=== PATIENT | male | born 1945 | race Caucasian/White ===

== ENCOUNTER 2016-03-12 13:46 | Outpatient (RCR) ==
[2014-12-02 14:38] VITALS: BMI 38.0
--- NOTE | 2016-03-15 08:39 | RS.OPPTEV2 ---
Date of Note: 03/12/16 Visit #: 1 Date of Evaluation: 03/12/16 Payer Source: MEDICARE Treatment Diagnosis: Low back pain History of Condition/Mechanism of Injury:: Patient reports increased low back and LE pain since approximately November 2015. Reports no known injury. Reports a history of problems with the low back. He had surgery to the low back in 2010 which involved hardware at L2-3 . Prior Level of Function.....Patient was independent with: ADL's, Self Care, Caregiving, Ambulation/Mobility, Community Integration/Access Functional Limitations: Sleep, Self Care, ADL's, Reaching, Pushing, Pulling, Lifting, Carrying, Sitting, Standing, Bending, Ambulation, Community Access/ Integration Current Subjective/complaints:: Patient reports low back pain and burning pain into the hips. States right side is worse than the left. States his pain is worse at night. Reports waking up many times due to pain and has to frequently change positions. Riding in the car is also difficult. States he also has times that his legs feel like "rubber". States this varies from day to day, and he can usually tell when he gets up in the morning how his legs are going to feel the rest of the day. *Precautions: PACEMAKER Medical History Medical History: Hypertension, Arthritis Surgical History Comments:: Lumbar surgery 2010, PACEMAKER, Cervical spine surgery Smoking Status: Former smoker Hx Home Medications: Omeprazole,Valsartan, Aricept, Metoprolol, Xanax, Lexapro Patient's Goals: His goal is to get relief of back and leg pain, and put off or avoid back surgery. Pain Assessment - Pain Description Pain Location: back and hips Current Pain Intensity: 4/10 Worst Pain Intensity: 7/10 Functional Outcome Measure Oswestry LBP: 64 - G Codes & Severity Modifier G Codes & Modifier: Mobility current CL. Mobility goal CJ Source of G Code score: Oswestry LBP scale Observation - Observation Posture: Forward Head, Rounded Shoulders, Decreased Lumbar Lordosis, Posterior Pelvic Tilt Gait - Gait Pattern General Gait Pattern Observation: No Deviations/Normal - ROM Comments: Lumbar AROM is approximately 50-75% of normal range. LE AROM is WFL' s. Right hip is tighter into IR and ER rotation and the right SLR is also less. - Strength Trunk Lateral Flexion: 4 Good Trunk Rotation: 4 Good Comments: Bilateral LE strength is 4+ to 5/5 throughout. - Special Tests SHAISTA Test: Negative Left, Positive Right SLR Test: Negative Left, Negative Right Seated Dural Stretch Test: Negative Left, Negative Right SI Joint Compression: Negative SI Joint Distraction: Negative Palpation Comments:: Patient reports tenderness at right superior gluteal musculature. Patient reports no significant tenderness with palpation throughout the lumbar spine and paraspinals, or either SI joint. Minimal muscle guarding noted along lumbar paraspinals. Sensation - Sensation Comments: Reports hyposensitivity along bilateral upper lateral thighs, worse on the right than the left. Additional Comments: Additional Comments: Right SLR to 30-35 degrees. Left SLR to 45 degrees. - Treatment Modality: Electrical Stim Unattended Parameters/Method Applied: 4 large pads, uncrossed to lumbar paraspinals X 15 mins @ 120 peak volts. Patient Position: Supine - Heat/Cryotherapy Treatment: Hot Pack (with Estim) Interventions - Exercise/Activities/Manual Therapy Exercises/Activities: Patient instructed in stretching SKTC and lower trunk rotation. Manual Therapy: NA HOME EXERCISE PROGRAM: stretching SKTC and lower trunk rotation. - Charges Total Direct Minutes: 55 mins Total Treatment Time: 55 mins Procedures billed for this date of service:: EVAL, Estim, HP Assessment Assessment: Patient presents to therapy with a diagnosis of low back pain. He reports difficulty sleeping, difficulty riding in a car, and hyposensitivity and weakness in the legs with prolonged standing and walking. He exhibits less flexibilty in the hip compared to the left. He exhibits good potential to benefit from modalities and exercises to reduce his pain and address muscle imbalances in the hips. Patient Education: Education of diagnosis, Body/Joint mechanics, Home Exercise Program, Home Safety, Activity Modification, Education of Plan of Care Rehab Potential: Good Short Term Goals Goal #1: Patient independent and compliant with basic HEP. Goal to be met by: 03/29/16 Goal #2: Right SLR to 40 degrees. Goal to be met by: 03/29/16 Goal #3: Radiating symptoms localized to the low back. Goal to be met by: 03/29/16 Longterm Goals Goal #1: Pt knows HEP and to continue exercises to maintain level at discharge. Goal to be met by: 04/29/16 Goal #2: Score on Oswestry LBP scale improved to 39% or better. Goal to be met by: 04/29/16 Goal #3: Pt able to tolerate riding in car with minimal low back pain. Goal to be met by: 04/29/16 Goal #4: Patient able to sleep 6 hours w/o interruption from back pain. Goal to be met by: 04/29/16 Plan - Treatment to be Provided Procedures: Therapeutic Exercises, Therapeutic Activity, Patient Education Modalities: Electrical Stimulation, Cryotherapy, Hot Packs - Treatment Plan Frequency: 2 X week Duration: 6 weeks ORDER # VISITS AND/OR THROUGH DATE: 04/29/16 - Treatment Code (1) Low back pain Qualifiers: Chronicity: unspecified Back pain laterality: unspecified Sciatica presence: unspecified whether sciatica present Qualified Description: Low back pain, unspecified back pain laterality, unspecified chronicity, with sciatica presence unspecified Qualifier Code(s): (M54.5) Low back pain
== END 2016-03-13 ==
PROVIDERS: ATTEND Physician Assistant Surgical
DX: M54.5 Low back pain (principal)

== ENCOUNTER 2016-04-06 13:00 | Outpatient (RCR) ==
[2014-12-02 14:38] VITALS: BMI 38.0
--- NOTE | 2016-03-15 14:57 | RS.OPPTDN ---
Subjective Date of Note: 03/15/16 Date of Evaluation: 03/12/16 Payer Source: MEDICARE Treatment Diagnosis: Low back pain *Precautions: PACEMAKER Pain Assessment - Pain Description Pain Location: LBP and right lateral thigh. Pain Description: Radiating Pain Description: Increased LBP over the past couple days associated with increased demands Interventions - Exercise/Activities/Manual Therapy Exercises/Activities: Patient performed alternating KTC and LTR X 5-10 reps. He was instructed in posterior pelvic tilts and hamstring stretches bilaterally to be performed with the HEP he has already began. He demonstrated good understanding but further education will be needed. Total minutes of Exercise: 15 Manual Therapy: Myofasical stretching in the area of the right piriformis and medial to the trochanteric area as well as the right mid-lower lumbar paraspinals. Tender point releases also performed in these areas and deep tissue mobilization. Total minutes of Manual Therapy: 30 HOME EXERCISE PROGRAM: Alt KTC, LTR, posterior pelvic tilts and hamstring stretches. - Charges Total Direct Minutes: 45 Total Treatment Time: 45 Procedures billed for this date of service:: ther ex & manual therapy X 2 Assessment: Patient tolerated tx well and had relief of pain and tightness following today's intervention. Patient Education: Body/Joint mechanics, Home Safety, Activity Modification Patient demonstrates compliance with HEP?: Yes Plan PLAN OF CARE EXPIRES ON:: 04/29/16 ORDER # VISITS AND/OR THROUGH DATE: 04/29/2016 PLAN: Continue Plan of Care
--- NOTE | 2016-03-20 15:11 | RS.CXNS ---
Date of scheduled appointment: 03/20/16 Type: Cancel ( calls to cancel appointment, patient is sick.)
--- NOTE | 2016-03-22 16:53 | RS.OPPTDN ---
Subjective Date of Note: 03/22/16 Visit #: 3 Date of Evaluation: 03/12/16 Payer Source: MEDICARE Treatment Diagnosis: Low back pain Current Subjective/complaints:: Patient reports feeling better following treatment today than he has been in several days. States he is working on HEP and will increase hold time with stretching. *Precautions: PACEMAKER Pain Assessment - Pain Description Pain Location: LBP and right lateral thigh. Pain Description: Radiating Pain Description: Increased LBP over the past couple days associated with increased demands - Treatment Modality: Electrical Stim Unattended Parameters/Method Applied: [id number] HVGC to 180-190p.v. with 4 large pads to the lower lumbar paraspinals and right upper gluteal region with CP. Patient in supine. Patient Position: Supine - Heat/Cryotherapy Treatment: Cryotherapy Interventions - Exercise/Activities/Manual Therapy Exercises/Activities: [id number]. Patient assisted with HS, piriformis, SKTC, trunk rotation, and ITB stretching. Long stretching and progressive hold times. Total minutes of Exercise: 14mins Manual Therapy: NA HOME EXERCISE PROGRAM: Alt KTC, LTR, posterior pelvic tilts and hamstring stretches. Piriformis stretching. - Charges Total Direct Minutes: 14mins Total Treatment Time: 40mins Procedures billed for this date of service:: HP, Estim unattended, EX Assessment: Patient responded well to treatment today and reports significant reduction in pain. Patient Education: Body/Joint mechanics, Home Exercise Program, Activity Modification Patient demonstrates compliance with HEP?: Yes Short Term Goals Goal #1: Patient independent and compliant with basic HEP. Goal to be met by: 03/29/16 Progress towards Goal:: Progressing Goal #2: Right SLR to 40 degrees. Goal to be met by: 03/29/16 Progress towards Goal:: Progressing Goal #3: Radiating symptoms localized to the low back. Goal to be met by: 03/29/16 Geotechnicial Properties Technician Goals Goal #1: Pt knows HEP and to continue exercises to maintain level at discharge. Goal to be met by: 04/29/16 Goal #2: Score on Oswestry LBP scale improved to 39% or better. Goal to be met by: 04/29/16 Goal #3: Pt able to tolerate riding in car with minimal low back pain. Goal to be met by: 04/29/16 Goal #4: Patient able to sleep 6 hours w/o interruption from back pain. Goal to be met by: 04/29/16 Plan PLAN OF CARE EXPIRES ON:: 04/29/16 ORDER # VISITS AND/OR THROUGH DATE: 04/29/2016 PLAN: Continue Plan of Care (Continue with modalities and exercise to reduce pain and increase functional activity level.)
--- NOTE | 2016-03-27 16:23 | RS.OPPTDN ---
Subjective Date of Note: 03/27/16 Visit #: 4 Date of Evaluation: 03/12/16 Payer Source: MEDICARE Treatment Diagnosis: Low back pain Current Subjective/complaints:: Patient reports having a fall yesterday. States he missed a step and fell on concrete. Reports being very sore but does not feel he has any injuries that need to be seen by physician. Reports feeling better after treatment and exercise. *Precautions: PACEMAKER Pain Assessment - Pain Description Pain Location: LBP and right lateral thigh. Pain Description: Radiating Pain Description: Increased LBP over the past couple days associated with increased demands - Treatment Modality: Electrical Stim Unattended Parameters/Method Applied: [id number] HVGC to 210p.v. with 4 large pads, cross current, to bilateral lumbar paraspinals with HP. Patient Position: Supine - Heat/Cryotherapy Treatment: Hot Pack ([id number] with Estim ) Interventions - Exercise/Activities/Manual Therapy Exercises/Activities: [id number]. Patient assisted with HS, piriformis, SKTC, trunk rotation, and ITB stretching. Long stretching and progressive hold times again today. Discussed continued stretching at home. Total minutes of Exercise: 15mins Manual Therapy: NA HOME EXERCISE PROGRAM: Alt KTC, LTR, posterior pelvic tilts and hamstring stretches. Piriformis stretching. - Charges Total Direct Minutes: 15mins Total Treatment Time: 40mins Procedures billed for this date of service:: HP, Estim unattended, EX Assessment: Continued with long stretches again today due to patients report of increased soreness after a fall yesterday. Will attempt to progress trunk stability next session if tolerated. Patient Education: Body/Joint mechanics, Home Exercise Program, Activity Modification Patient demonstrates compliance with HEP?: Yes Short Term Goals Goal #1: Patient independent and compliant with basic HEP. Goal to be met by: 03/29/16 Progress towards Goal:: Progressing Goal #2: Right SLR to 40 degrees. Goal to be met by: 03/29/16 Progress towards Goal:: Progressing Goal #3: Radiating symptoms localized to the low back. Goal to be met by: 03/29/16 Consumer Services Advisor Goals Goal #1: Pt knows HEP and to continue exercises to maintain level at discharge. Goal to be met by: 04/29/16 Goal #2: Score on Oswestry LBP scale improved to 39% or better. Goal to be met by: 04/29/16 Goal #3: Pt able to tolerate riding in car with minimal low back pain. Goal to be met by: 04/29/16 Goal #4: Patient able to sleep 6 hours w/o interruption from back pain. Goal to be met by: 04/29/16 Plan PLAN OF CARE EXPIRES ON:: 04/29/16 ORDER # VISITS AND/OR THROUGH DATE: 04/29/2016 PLAN: Continue Plan of Care
--- NOTE | 2016-03-29 16:30 | RS.OPPTDN ---
Subjective Date of Note: 03/29/16 Visit #: 5 Date of Evaluation: 03/12/16 Payer Source: MEDICARE Treatment Diagnosis: Low back pain Current Subjective/complaints:: Patient reports his back is about the same, but the burning in the hips is going away. States left LE symptoms are just about gone. Right hip continues to burn. *Precautions: PACEMAKER Pain Assessment - Pain Description Pain Location: LBP and right lateral thigh. Pain Description: Radiating Pain Description: Increased LBP over the past couple days associated with increased demands - Treatment Modality: Electrical Stim Unattended Parameters/Method Applied: 4 pads running horizontally to lumb/sacral region and upper lumbar X 20 mins to HVGS up to 155 peak volts. Patient Position: Supine - Heat/Cryotherapy Treatment: Hot Pack Interventions - Exercise/Activities/Manual Therapy Exercises/Activities: x18 mins. Patient assisted with HS, piriformis, SKTC, trunk rotation, and ITB stretching. Manual Therapy: NA HOME EXERCISE PROGRAM: Alt KTC, LTR, posterior pelvic tilts and hamstring stretches. Piriformis stretching. - Charges Total Direct Minutes: 18 mins Total Treatment Time: 38 mins Procedures billed for this date of service:: hp, Estim, Ex Assessment: Patient performing his exercises at home, states he is not always consistent. States burning symptoms in LE's are getting better. Low back pain is unchanged. He feels the Estim and stretching helps quite a bit. Patient demonstrates compliance with HEP?: Yes Short Term Goals Goal #1: Patient independent and compliant with basic HEP. Goal to be met by: 03/29/16 Progress towards Goal:: Progressing Goal #2: Right SLR to 40 degrees. Goal to be met by: 03/29/16 Progress towards Goal:: Progressing Goal #3: Radiating symptoms localized to the low back. Goal to be met by: 03/29/16 Progress towards Goal:: Progressing Comments:: Left LE symptoms nearly gone per patient. Group Home Goals Goal #1: Pt knows HEP and to continue exercises to maintain level at discharge. Goal to be met by: 04/29/16 Goal #2: Score on Oswestry LBP scale improved to 39% or better. Goal to be met by: 04/29/16 Goal #3: Pt able to tolerate riding in car with minimal low back pain. Goal to be met by: 04/29/16 Goal #4: Patient able to sleep 6 hours w/o interruption from back pain. Goal to be met by: 04/29/16 Plan PLAN OF CARE EXPIRES ON:: 04/29/16 ORDER # VISITS AND/OR THROUGH DATE: 04/29/2016 PLAN: Continue Plan of Care
--- NOTE | 2016-04-03 14:11 | RS.OPPTDN ---
Subjective Date of Note: 04/03/16 Visit #: 6 Date of Evaluation: 03/12/16 Payer Source: MEDICARE Treatment Diagnosis: Low back pain Current Subjective/complaints:: Reports the pain is moderate today,radiates into the posterior thigh,but not below the knee today. *Precautions: PACEMAKER Pain Assessment - Pain Description Pain Location: LBP and right lateral thigh. Pain Description: Radiating Pain Description: Increased LBP over the past couple days associated with increased demands Current Pain Intensity: 4/10 - Treatment Modality: Electrical Stim Unattended Parameters/Method Applied: 20 mins. to lumbar area,channel 1 @ 175pv,channel 2 @ 155pv. - Heat/Cryotherapy Treatment: Hot Pack (concurrent with e-stim) Interventions - Exercise/Activities/Manual Therapy Exercises/Activities: x20 mins. Patient assisted with 90/90 hamstring stretches ,using contract-relax, piriformis, SKTC, trunk rotation, and isometric hip abd / add. Total minutes of Exercise: 20 Manual Therapy: NA Total minutes of Manual Therapy: 0 HOME EXERCISE PROGRAM: Alt KTC, LTR, posterior pelvic tilts and hamstring stretches. Piriformis stretching. - Charges Total Direct Minutes: 20 Total Treatment Time: 40 Procedures billed for this date of service:: hp,e-stim,ex 1 Assessment: Patient has moderate hamstring tightness present,greater on the R, as opposed to the L today.He does have improved hamstring extensibility bilaterally after contract-relax today.His lower trunk rotation is WFL,with stretch dsicomfort only,no increase in sciatica. Patient Education: Education of diagnosis, Body/Joint mechanics, Home Exercise Program, Home Safety, Activity Modification, Education of Plan of Care Patient demonstrates compliance with HEP?: Yes Short Term Goals Goal #1: Patient independent and compliant with basic HEP. Goal to be met by: 03/29/16 Progress towards Goal:: Progressing Goal #2: Right SLR to 40 degrees. Goal to be met by: 03/29/16 Progress towards Goal:: Progressing Goal #3: Radiating symptoms localized to the low back. Goal to be met by: 03/29/16 Progress towards Goal:: Progressing Skilled Nursing Goals Goal #1: Pt knows HEP and to continue exercises to maintain level at discharge. Goal to be met by: 04/29/16 Progress towards goal: Progressing Goal #2: Score on Oswestry LBP scale improved to 39% or better. Goal to be met by: 04/29/16 Goal #3: Pt able to tolerate riding in car with minimal low back pain. Goal to be met by: 04/29/16 Goal #4: Patient able to sleep 6 hours w/o interruption from back pain. Goal to be met by: 04/29/16 Plan PLAN OF CARE EXPIRES ON:: 04/29/16 ORDER # VISITS AND/OR THROUGH DATE: 04/29/2016 PLAN: Continue Plan of Care
--- NOTE | 2016-04-06 14:12 | RS.OPPTDN ---
Subjective Date of Note: 03/20/16 Date of Evaluation: 03/12/16 Payer Source: MEDICARE Treatment Diagnosis: Low back pain Current Subjective/complaints:: Reports the back feels better today,but the R leg into the back of his thigh hurts today. *Precautions: PACEMAKER Pain Assessment - Pain Description Pain Location: LBP and right lateral thigh. Pain Description: Radiating, Dull, Aching Current Pain Intensity: 5 - Treatment Modality: Electrical Stim Unattended Parameters/Method Applied: 20 mins. high volt,channel 1 @ 185 pv,channel 2 @ 240 pv to lumbar. - Heat/Cryotherapy Treatment: Hot Pack (concurrent with e-stim) Interventions - Exercise/Activities/Manual Therapy Exercises/Activities: x20 mins. Patient assisted with 90/90 hamstring stretches ,using contract-relax, piriformis, SKTC, trunk rotation, and isometric hip abd / add. Total minutes of Exercise: 20 Manual Therapy: NA Total minutes of Manual Therapy: 0 HOME EXERCISE PROGRAM: Alt KTC, LTR, posterior pelvic tilts and hamstring stretches. Piriformis stretching. - Charges Total Direct Minutes: 20 Total Treatment Time: 40 Procedures billed for this date of service:: hp,e-stim,ex 1 Assessment: Patient has decreased tightness in the lumbar area,improved hamstring extensibility.He reports stretch discomfort,but no increase in LBP or radiculopathy. Short Term Goals Goal #1: Patient independent and compliant with basic HEP. Goal to be met by: 03/29/16 Progress towards Goal:: Progressing Goal #2: Right SLR to 40 degrees. Goal to be met by: 03/29/16 Progress towards Goal:: Progressing Goal #3: Radiating symptoms localized to the low back. Goal to be met by: 03/29/16 Progress towards Goal:: Progressing Correction Goals Goal #1: Pt knows HEP and to continue exercises to maintain level at discharge. Goal to be met by: 04/29/16 Progress towards goal: Progressing Goal #2: Score on Oswestry LBP scale improved to 39% or better. Goal to be met by: 04/29/16 Goal #3: Pt able to tolerate riding in car with minimal low back pain. Goal to be met by: 04/29/16 Goal #4: Patient able to sleep 6 hours w/o interruption from back pain. Goal to be met by: 04/29/16 Plan PLAN OF CARE EXPIRES ON:: 04/29/16 ORDER # VISITS AND/OR THROUGH DATE: 04/29/2016 PLAN: Continue Plan of Care
== END 2016-04-10 ==
PROVIDERS: ATTEND Physician Assistant Surgical
DX: M54.5 Low back pain (principal)

== ENCOUNTER 2016-04-07 13:21 | Emergency (ER) ==
[2016-04-07 13:31] VITALS: BP 140/84; TEMP 99.7; BMI 35.7
--- NOTE | 2016-04-07 13:42 | ED.PDOC ---
General ED Provider: Dr. YURI GTZ Chief Complaint: Urinary Problem Stated Complaint: Patient complains of one day history of painful urination. Time Seen by Physician: 13:42 Mode of Arrival: Walk-In Information Source: Patient Primary Care Provider: JANIE KING Nursing and Triage Documentation Reviewed and Agree: Yes Review of Systems - Review Of Systems Constitutional: Reports: No symptoms Eyes: Reports: No symptoms Ears, Nose, Mouth, Throat: Reports: No symptoms Respiratory: Reports: No symptoms Cardiac: Reports: No symptoms GI: Reports: No symptoms : Reports: No symptoms Musculoskeletal: Reports: No symptoms Skin: Reports: No symptoms Neurological: Reports: No symptoms Endocrine: Reports: No symptoms Hematologic/Lymphatic: Reports: No symptoms All Other Systems: Reviewed and Negative Past Medical History - Past Medical History Previously Healthy: Yes Endocrine: Reports: Hypothyroid, Hyperthyroid Cardiovascular: Reports: CAD, [place], CHF Respiratory: Reports: None Hematological: Reports: None Gastrointestinal: Reports: None Genitourinary: Reports: Kidney stones Neuro/Psych: Reports: None Musculoskeletal: Reports: None Cancer: Reports: Unknown (thyroid ) - Surgical History General Surgical History: Reports: None, CABG (2011), Pacemaker, Other ( Thyroid surgery ) - Family History Family History: Reports: None - Social History Smoking Status: Former smoker Hx Substance Use: No Alcohol Screening: None - Immunizations Tetanus Shot up to Date: Yes Physical Exam - Physical Exam Appearance: Ill-appearing Ill-appearing: Mild Pain Distress: Mild Eyes: DOROTHEA, EOMI, Conjunctiva clear Respiratory: Airway patent, Breath sounds clear, Breath sounds equal, Respirations nonlabored Cardiovascular: RRR, Pulses normal, No rub, No murmur GI/: Tender (suprapubit carea ) Musculoskeletal: Limited ROM Skin: Warm, Dry, Normal color Neurological: Sensation intact, Motor intact, Reflexes intact, Cranial nerves intact, Alert, Oriented Psychiatric: Anxious Critical Care Note - Critical Care Note Total Time (mins): 0 Course - Course Hematology/Chemistry: 04/07/16 13:50 04/07/16 13:50 Orders, Labs, Meds: Lab Review 04/07/16 04/07/16 13:50 14:06 WBC 15.28 H RBC 4.46 L Hgb 12.9 L Hct 38.9 L MCV 87.2 MCH 28.9 MCHC 33.2 RDW Coeff of Gonsalo 14.3 Plt Count 153 Immature Gran % (Auto) 0.5 Neut % (Auto) 82.4 Lymph % (Auto) 9.2 L [place] % (Auto) 7.1 Eos % (Auto) 0.5 Baso % (Auto) 0.3 Immature Gran # (Auto) 0.1 Neut # 12.6 H Lymph # 1.4 [place] # 1.1 Eos # 0.1 Baso # 0.1 Sodium 142 Potassium 3.7 Chloride 106 Carbon Dioxide 25 Anion Gap 14.7 BUN 19 H Creatinine 0.87 Estimated GFR (MDRD) 87.00 BUN/Creatinine Ratio 21.83 Glucose 102 Calcium 9.3 Total Bilirubin 1.15 AST 22 ALT 26 Alkaline Phosphatase 61 Total Protein 6.8 Albumin 3.6 Globulin 3.2 Albumin/Globulin Ratio 1.13 Urine Color Dark Urine Clarity Cloudy Urine pH 8.5 Ur Specific [place] 1.015 Urine Protein 2+ Urine Glucose (UA) Negative Urine Ketones 1+ Urine Blood 3+ Urine Nitrite Negative Urine Bilirubin 1+ Urine Urobilinogen 1.0 Ur Leukocyte Esterase 2+ Urine Microscopic RBC Tntc Urine Microscopic WBC Tntc Ur Squamous Epith Cells Not present Orders Category Date Time Status ED IV/MEDIPORT/POWERPORT .ONCE EMERGENCY 04/07/16 13:43 Active CBC W/ AUTO DIFF Stat LAB 04/07/16 13:50 Completed COMPREHENSIVE METABOLIC PANEL Stat LAB 04/07/16 13:50 Completed URINALYSIS C & S IF INDICATED Stat LAB 04/07/16 14:06 Completed URINE CULTURE Stat LAB 04/07/16 14:20 Received 0.9 % Sodium Chloride [Saline Flush] MEDS 04/07/16 13:43 Ordered 1 syr IVF PRN PRN Levofloxacin/D5w [Levaquin] 500 mg MEDS 04/07/16 14:21 Ordered Premix 100 ml D5w 1 bag IV ONCE Phenazopyridine HCl [Pyridium] MEDS 04/07/16 13:43 Discontinued 100 mg PO ONCE STA Sodium Chloride 0.9% [Sodium Chloride] 1,000 ml MEDS 04/07/16 13:[address] ABD/PEL WO RENAL STONE PROT Stat RADS 04/07/16 13:42 Taken Medications Generic Name Dose Route Start Last Admin Trade Name Freq PRN Reason Stop Dose Admin Sodium Chloride 1,000 mls @ 1,000 mls/hr 04/07/16 13:43 02/25/17 14:13 Sodium Chloride IV 04/07/16 14:42 1,000 mls/hr BOLUS STA Administration Levofloxacin/Dextrose 500 mg/ 100 mls @ 100 mls/hr 04/07/16 14:21 Dextrose IV 04/07/16 15:20 ONCE STA Sodium Chloride 1 syr 04/07/16 13:43 04/07/16 14:13 Saline Flush IVF 1 syr PRN PRN Administration To flush IV Discontinued Medications Generic Name Dose Route Start Last Admin Trade Name Freq PRN Reason Stop Dose Admin Phenazopyridine HCl 100 mg 04/07/16 13:43 04/07/16 14:06 Pyridium PO 04/07/16 13:44 100 mg ONCE STA Administration Vital Signs: Temp Pulse Resp BP Pulse Ox 04/07/16 13:21 99.7 F H 110 H 16 140/84 94 L Departure - Departure Time of Disposition: 14:22 Disposition: HOME SELF-CARE Discharge Problem: Cystitis Prostatitis Qualifiers: Prostatitis type: acute Qualifier Code: (N41.0) Acute prostatitis Instructions: Prostatitis (ED), Dysuria (ED), Urinary Tract Infection in Men ( ED) Condition: Fair Pt referred to PMD for follow-up: Yes Additional Instructions: push fluids Take medications as prescribed Follow up with PCP in 3 days Prescriptions: Hydrocodone/Acetaminophen [Moffat 5-325 Tablet] 1 tab PO Q6HR PRN #12 tablet PRN Reason: PAIN Levofloxacin [Levaquin] 500 mg PO DAILY #14 tablet Phenazopyridine HCl [Pyridium] 100 mg PO TID PRN #10 tablet PRN Reason: Urinary Burning. Allergies/Adverse Reactions: Allergies meperidine HCl [From Demerol] Adverse Reaction (Verified 12/02/14 14:48) Home Medications: Ambulatory Orders Alprazolam 0.25 mg PO TID PRN 12/02/14 Aspirin [Aspirin EC] 81 mg PO DAILYWM 12/02/14 Escitalopram Oxalate [Lexapro] 20 mg PO DAILY 12/02/14 Ferrous Sulfate [Iron] 325 mg PO DAILY 12/02/14 Metoprolol Tartrate [Lopressor] 50 mg PO DAILY 12/02/14 Nitroglycerin [Nitrostat] 0.4 mg SL DIRECTED PRN 12/02/14 Omeprazole [Prilosec] 20 mg PO QDAC 12/02/14 Valsartan [Diovan] 80 mg PO DAILY 12/02/14 Atorvastatin Calcium [Lipitor] 80 mg PO DAILY 04/07/16 Calcium Carbonate/Vitamin D3 [Calcium 600 + Vit D 400 Tablet] 1 each PO DAILY Donepezil HCl [Aricept] 5 mg PO DAILY 04/07/16 Furosemide [Lasix Tab] 40 mg PO DAILY 04/07/16 Hydrocodone/Acetaminophen [Moffat 5-325 Tablet] 1 tab PO Q6HR PRN #12 tablet Levofloxacin [Levaquin] 500 mg PO DAILY #14 tablet 04/07/16 [place]-3 Fatty Acids [Fish Oil Concentrate] 1,000 mg PO DAILY 04/07/16 Phenazopyridine HCl [Pyridium] 100 mg PO TID PRN #10 tablet 04/07/16 Potassium Chloride 20 meq PO DAILY 04/07/16 Ticagrelor [Brilinta] 90 mg PO BID 04/07/16 Disposition Discussed With: Family
[2016-04-07] MEDS ORDERED: SODIUM CHLORIDE 1,000 ML IV STA (13:43)
[2016-04-07] MEDS ORDERED: PYRIDIUM PO STA (13:43)
[2016-04-07 13:54] LABS: BASOPHILS # (AUTO) 0.1 K/uL (0-0.2); BASOPHILS % (AUTO) 0.3 % (0.0-3.0); EOSINOPHILS # (AUTO) 0.1 K/ul (0.0-0.7); EOSINOPHILS % (AUTO) 0.5 % (0.0-7.0); HEMATOCRIT 38.9 % (42.0-52.0); HEMOGLOBIN 12.9 g/dl (14.0-18.0); IMMATURE GRANULOCYTE % (AUTO) 0.5 % (0.0-5.0); LYMPHOCYTES # (AUTO) 1.4 K/uL (0.60-3.4); LYMPHOCYTES % (AUTO) 9.2 (10.0-50.0); MEAN CORPUSCULAR HEMOGLOBIN 28.9 pg (27.0-31.0); MEAN CORPUSCULAR HGB CONC 33.2 (31.8-35.4); MEAN CORPUSCULAR VOLUME 87.2 fl (80.0-94.0); MONOCYTES # (AUTO) 1.1 K/uL (0.4-2.0); MONOCYTES % (AUTO) 7.1 (0-10); NEUTROPHILS # (AUTO) 12.6 K/ul (2.0-6.9); NEUTROPHILS % (AUTO) 82.4; PLATELET COUNT 153 10^3/uL (140-440); RED BLOOD COUNT 4.46 10^6/ul (4.70-6.10); WHITE BLOOD COUNT 15.28 K/ul (4.2-10.2)
[2016-04-07 14:13] LABS: ALBUMIN 3.6 g/dL (3.4-5.0); ALBUMIN/GLOBULIN RATIO 1.13; ANION GAP 14.7; BILIRUBIN,TOTAL 1.15 mg/dL (0.00-1.20); BUN/CREATININE RATIO 21.83; CALCIUM 9.3 mg/dL (8.2-10.2); CREATININE 0.87 mg/dL (0.60-1.10); POTASSIUM 3.7 mmol/L (3.5-5.1); TOTAL PROTEIN 6.8 g/dL (5.8-8.1)
[2016-04-07 14:15] LABS: BILIRUBIN,URINE 1+ (NEGATIVE); KETONES,URINE 1+ (NEGATIVE); LEUKOCYTE ESTERASE ,URINE 2+ (NEGATIVE); NITRITE,URINE Negative (NEGATIVE); PH,URINE 8.5 (5-9); PROTEIN,URINE 2+ (NEGATIVE); URINE, BLOOD 3+ (NEGATIVE)
[2016-04-07 14:18] LABS: ADD URINE MICROSCOPIC YES
[2016-04-07] MEDS ORDERED: LEVAQUIN 500 MG in PREMIX 100 ML D5W 1 BAG IV STA (14:21)
--- NOTE | 2016-04-07 14:27 | CT ---
EXAM: CT of the abdomen and pelvis without contrast. HISTORY: Suprapubic pain COMPARISON: None. TECHNIQUE: Contiguous axial images at 3 mm intervals were obtained from lung bases through the pelv is without contrast. Coronal and sagittal reformats were performed. FINDINGS: CHEST: The lung bases show no lobar consolidation or effusion. Pacer wires are identified. The hea rt size is within normal limits.There is no hiatal hernia. ABDOMEN: No acute abnormality. There is a posterior lateral abdominal wall hernia on the left conta ining fat. LIVER: There is no solid mass lesion or intrahepatic ductal dilatation. BILIARY: The gallbladder is normally distended. No gallstones are noted. No pericholecystic fluid or inflammation. The common bile duct is normal. SPLEEN: The spleen is unremarkable. There is old granulomatous disease. PANCREAS: The pancreas shows no mass lesion or peripancreatic inflammation. ADRENAL GLANDS: There may be a small adenoma in the right adrenal. RENAL: The kidneys show no hydronephrosis. There are some tiny punctate calyceal stones seen on th e right. There are no obstructing ureteral stones. No solid mass lesions are identified. There are no large cysts. RETROPERITONEUM: No aortic aneurysm is identified. Atherosclerotic calcifications are seen. There is no retroperitoneal or mesenteric adenopathy. BOWEL: There is no obstruction or ileus. There is no bowel wall thickening, edema or mesenteric fat stranding. There is no free fluid or free air. The appendix is identified and is normal. PELVIS: There is no free fluid. BLADDER: There is extensive inflammation and thickening of the bladder wall. GENITOURINARY STRUCTURES: The prostate is enlarged and edematous with fat stranding along the pelvi c side wall. The prostate measures 6.3 cm across. OSSEOUS STRUCTURES: No acute osseous abnormalities. There has been prior lumbar surgery. IMPRESSION: 1. Extensive inflammation and edema involving the prostate extending to the bladder. This probably represents an acute prostatitis and cystitis. 2. Other miscellaneous findings as detailed above. Report called to
[2016-04-07] MEDS ORDERED: LEVAQUIN 100 ML IV ONE (14:34)
== END 2016-04-07 16:03 | disposition home or self-care (01) ==
LOC: ED 13:21
DX: N30.90 Cystitis, unspecified without hematuria (principal); N41.0 Acute prostatitis; Z79.899 Other long term (current) drug therapy
CPT/HCPCS: 36415; 74176; 80053; 81001; 85025; 87086; 87186; 96365; 96368; 99283

== ENCOUNTER 2016-04-23 15:00 | Outpatient (RCR) ==
--- NOTE | 2016-04-11 14:58 | RS.OPPTDN ---
Subjective Date of Note: 04/11/16 Visit #: 8 Date of Evaluation: 03/12/16 Payer Source: MEDICARE Treatment Diagnosis: Low back pain Current Subjective/complaints:: Patient reports intense pain with attempted urination this past Saturday,04-07-16,came to ER for treatment.He requests e-stim ,only today,does not feel he can tolerate the exercises or heat. *Precautions: PACEMAKER Pain Assessment - Pain Description Pain Location: LBP and right lateral thigh. Current Pain Intensity: 5 Other Comments regarding Pain:: extreme over the weekend ,but feels this was more due to urological issues - Treatment Modality: Electrical Stim Unattended Parameters/Method Applied: 20 mins. high volt,channel 1 @ 190 pv,channel 2 @ 140 pv to lumbar. Patient Position: Supine Interventions - Exercise/Activities/Manual Therapy Exercises/Activities: x20 mins. Patient assisted with 90/90 hamstring stretches ,using contract-relax, piriformis, SKTC, trunk rotation, and isometric hip abd / add. Manual Therapy: NA HOME EXERCISE PROGRAM: Alt KTC, LTR, posterior pelvic tilts and hamstring stretches. Piriformis stretching. - Charges Total Direct Minutes: 0 Total Treatment Time: 20 Procedures billed for this date of service:: e-stim Assessment: Abbreviated treatment today per patient's request due to having the urological issues and pain over the weekend,feels the exercises would cause pressure in the groin region.We will resume usual treatment shane improves. Patient Education: Education of Plan of Care Patient demonstrates compliance with HEP?: Yes Short Term Goals Goal #1: Patient independent and compliant with basic HEP. Goal to be met by: 03/29/16 Progress towards Goal:: Progressing Goal #2: Right SLR to 40 degrees. Goal to be met by: 03/29/16 (N/A) Goal #3: Radiating symptoms localized to the low back. Goal to be met by: 03/29/16 Progress towards Goal:: No Change Yard Foreman Goals Goal #1: Pt knows HEP and to continue exercises to maintain level at discharge. Goal to be met by: 04/29/16 Progress towards goal: Progressing Goal #2: Score on Oswestry LBP scale improved to 39% or better. Goal to be met by: 04/29/16 Goal #3: Pt able to tolerate riding in car with minimal low back pain. Goal to be met by: 04/29/16 Goal #4: Patient able to sleep 6 hours w/o interruption from back pain. Goal to be met by: 04/29/16 Plan PLAN OF CARE EXPIRES ON:: 04/29/16 ORDER # VISITS AND/OR THROUGH DATE: 04/29/2016 PLAN: Continue Plan of Care
--- NOTE | 2016-04-13 15:19 | RS.OPPTDN ---
Subjective Date of Note: 04/13/16 Visit #: 9 Date of Evaluation: 03/12/16 Payer Source: MEDICARE Treatment Diagnosis: Low back pain Current Subjective/complaints:: Patient feels the therapy is helping. *Precautions: PACEMAKER Pain Assessment - Pain Description Pain Location: LBP and right lateral thigh. Pain Description: Dull, Aching Current Pain Intensity: not rated - Treatment Modality: Electrical Stim Unattended Parameters/Method Applied: 20 mins. high volt to lumbar,channel 1 @ 180 pv, channel 2 @ 225 pv. in supine. Patient Position: Supine Interventions - Exercise/Activities/Manual Therapy Exercises/Activities: x20 mins. Patient assisted with 90/90 hamstring stretches ,using contract-relax, piriformis, SKTC, trunk rotation, and isometric hip abd / add. Total minutes of Exercise: 20 Manual Therapy: NA Total minutes of Manual Therapy: 0 HOME EXERCISE PROGRAM: Alt KTC, LTR, posterior pelvic tilts and hamstring stretches. Piriformis stretching. - Charges Total Direct Minutes: 20 Total Treatment Time: 40 Procedures billed for this date of service:: e-stim,ex Assessment: Patient reports today the pain is mostly in the back,as opposed to the legs.He tolerates riding in a vehicle better,slight improvement in sleeping with less pain.He has good knowledge of HEP. Patient Education: Education of diagnosis, Body/Joint mechanics, Home Exercise Program, Home Safety, Activity Modification, Education of Plan of Care Patient demonstrates compliance with HEP?: Yes Short Term Goals Goal #1: Patient independent and compliant with basic HEP. Goal to be met by: 03/29/16 Progress towards Goal:: Partially Met Goal #2: Right SLR to 40 degrees. Goal to be met by: 03/29/16 (occasionally causes increasd back pain) Progress towards Goal:: Partially Met Goal #3: Radiating symptoms localized to the low back. Goal to be met by: 03/29/16 Progress towards Goal:: Progressing Senior Living Goals Goal #1: Pt knows HEP and to continue exercises to maintain level at discharge. Goal to be met by: 04/29/16 Progress towards goal: Met Goal #2: Score on Oswestry LBP scale improved to 39% or better. Goal to be met by: 04/29/16 Progress towards goal: Progressing Goal #3: Pt able to tolerate riding in car with minimal low back pain. Goal to be met by: 04/29/16 Progress towards goal: Progressing Goal #4: Patient able to sleep 6 hours w/o interruption from back pain. Goal to be met by: 04/29/16 Progress towards goal: Progressing Plan PLAN OF CARE EXPIRES ON:: 04/29/16 ORDER # VISITS AND/OR THROUGH DATE: 04/29/2016 PLAN: Continue Plan of Care
--- NOTE | 2016-04-23 16:24 | RS.CXNS ---
Date of scheduled appointment: 04/23/16 Type: No Show
--- NOTE | 2016-05-07 11:02 | RS.OPPTDC ---
Date of Discharge: 04/25/16 Date of Evaluation: 03/12/16 Number of Visits: 9 Treatment Diagnosis: Low back pain Current Complaints/Gains: Patient feels theray has helped. He performs HEP consistently. He is confident he can continue exercises on his own. Reports he is able to tolerate riding or driving with minimal pain for short distances. He is sleeping for approximately 4 hours at a time. Functional Outcome Measure Oswestry LBP: 48 - G Codes & Severity Modifier G Codes & Modifier: Mobility goal CJ. Mobility d/C CK Source of G Code score: Oswestry LBP score Interventions - Exercise/Activities/Manual Therapy Exercises/Activities: NA Manual Therapy: NA HOME EXERCISE PROGRAM: Alt KTC, LTR, posterior pelvic tilts and hamstring stretches. Piriformis stretching. - Objective Findings Observations,measurements,etc.: Independent HEP demo. Right SLR to 45 degrees. - Charges Total Direct Minutes: NA Total Treatment Time: NA Procedures billed for this date of service:: NA Assessment Assessment: Patient reports improved flexibility and less pain with driving/ riding in car short distances. He feels he can continue exercises on his own. Short Term Goals Goal #1: Patient independent and compliant with basic HEP. Goal to be met by: 03/29/16 Progress towards Goal:: Partially Met Goal #2: Right SLR to 40 degrees. Goal to be met by: 03/29/16 (occasionally causes increasd back pain) Progress towards Goal:: Partially Met Goal #3: Radiating symptoms localized to the low back. Goal to be met by: 03/29/16 Progress towards Goal:: Progressing Histology Assistant Goals Goal #1: Pt knows HEP and to continue exercises to maintain level at discharge. Goal to be met by: 04/29/16 Progress towards goal: Met Goal #2: Score on Oswestry LBP scale improved to 39% or better. Goal to be met by: 04/29/16 Progress towards goal: Not Met Goal #3: Pt able to tolerate riding in car with minimal low back pain. Goal to be met by: 04/29/16 Progress towards goal: Partially Met Goal #4: Patient able to sleep 6 hours w/o interruption from back pain. Goal to be met by: 04/29/16 Progress towards goal: Not Met Plan Reason for Discharge:: No Further Skilled Therapy Indicated
== END 2016-05-11 ==
PROVIDERS: ATTEND Physician Assistant Surgical
DX: M54.5 Low back pain (principal)

== ENCOUNTER 2016-08-01 12:15 | Outpatient (CLI) ==
--- NOTE | 2016-08-01 13:05 | DI ---
EXAM: Three views of the right elbow HISTORY: Right elbow injury with pain. COMPARISON: None FINDINGS: There is no lytic or blastic lesion of the right elbow. There is soft tissue swelling ove r the olecranon with a small osteophyte present. Radial head articulates normally with the capitell um. There is no displaced fracture or dislocation identified. There are no displaced fat pads. IMPRESSION: Soft tissue swelling over the olecranon may represent traumatic swelling versus bursiti s. There is no displaced fracture identified.
--- NOTE | 2016-08-01 13:07 | DI ---
EXAM: Two views of the right hip HISTORY: Right hip pain. COMPARISON: CT abdomen pelvis 04/07/2016 FINDINGS: There is no displaced fracture or dislocation of the right hip. Joint spaces maintained. The adjacent osseous structures of the pelvis are normal. The soft tissues are unremarkable. IMPRESSION: No acute abnormality or displaced fracture of the of the right hip.
== END 2016-08-01 12:16 | disposition home or self-care (01) ==
LOC: RAD 12:15
PROVIDERS: ATTEND Family Medicine
DX: M25.521 Pain in right elbow (principal); M25.551 Pain in right hip

== ENCOUNTER 2018-01-21 13:25 | Outpatient (RCR) | END 2018-02-10 23:59 | PROVIDERS: ATTEND Orthopaedic Surgery | DX: M72.2 Plantar fascial fibromatosis (principal); M79.671 Pain in right foot; M62.89 Other specified disorders of muscle ==

== ENCOUNTER 2018-02-21 11:45 | Outpatient (CLI) | payer OTHER ==
--- NOTE | 2018-02-21 14:41 | CT ---
EXAM: CT of the abdomen pelvis without contrast History: Left flank pain. Comparison: CT abdomen pelvis 04/07/2016 Technique: Multiplanar CT images through the abdomen pelvis were obtained without the administration of IV contrast Findings: Coronary calcifications. Lung bases are clear. No acute osseous abnormalities. Postsurg ical changes of the lumbar spine. No change in the fat containing left posterior lateral abdominal w all hernia measuring 5.4 cm. No gallstones identified by CT. Calcified granulomas within the spleen . No focal liver lesions. No peripancreatic inflammation. Adrenal glands are within normal limits. No change in the small tamar ign left renal cyst. A few punctate 1 mm right renal calculi. No left renal calculi. No hydronephr osis and no perinephric stranding. No ureteral calculi. The appendix is normal. No bowel obstructi on. No free air and no ascites. Prostate is enlarged. No perirectal inflammation. Colonic diverti culosis. No bladder wall thickening. Impression: 1. 1 mm nonobstructing right nephrolithiasis. 2. Colonic diverticulosis. 3. Enlarged prostate. 4. No change in the fat containing left posterior lateral abdominal wall hernia
== END 2018-02-21 11:46 | disposition home or self-care (01) ==
LOC: RAD 11:45
PROVIDERS: ATTEND Family Medicine
DX: R10.9 Unspecified abdominal pain (principal); M72.2 Plantar fascial fibromatosis
CPT/HCPCS: 74176

== ENCOUNTER 2018-03-12 08:00 | Outpatient (RCR) ==
--- NOTE | 2018-02-19 08:35 | RS.OPPTEV2 ---
Date of Note: 02/17/18 Visit #: 1 Number of visits approved by Insurance: n/a Date of Evaluation: 02/17/18 Payer Source: MEDICARE Date of Onset/Injury/Change in Status: 12/27/17 Surgery Performed?: No Treatment Diagnosis: R plantar fasciatis History of Condition/Mechanism of Injury:: pt reports began having foot pain in 12/29. No definite injury noted, pt had visit for HEP, however no improvement. Prior Level of Function.....Patient was independent with: ADL's, Self Care, Caregiving, Ambulation/Mobility, Community Integration/Access Functional Limitations: Standing, Ambulation Current Subjective/complaints:: pt states that he has not consistently been performing HEP due to being busy building house etc. States pain is getting worse. Treatment Side (optional): Right *Precautions: PACEMAKER Medical History Medical History: Hypertension, Arthritis, Cancer Surgical History: Cervical Spine, Lumbar Spine Surgical History Comments:: PACEMAKER, Smoking Status: Never smoker Hx Home Medications: pt did not bring list of medications Patient's Goals: decrease pain. Pain Assessment - Pain Description Pain Location: R heel Pain Description: Burning, Sharp Current Pain Intensity: 4-5/10 Worst Pain Intensity: 9 Functional Outcome Measure LE Functional Scale: 24 - G Codes & Severity Modifier G Codes & Modifier: n/a Source of G Code score: n/a Observation - Observation Posture: Forward Head, Rounded Shoulders, Decreased Lumbar Lordosis Handedness: Right Comments: pt also has long history of LBP with radiating pain into BLE L worse than R. Gait - Gait Pattern General Gait Pattern Observation: Antalgic Gait Gait Comments: pt amb with antalgic gait due to pain in R foot with decreased heel strike/toe off on R foot. General Range of Motion: BUE and LE WFL's Muscle Strength: BUE 5/5. BLE hip flex 4+/5, knee flex/ext 5/5, L ankle DF/PF 5 /5 Ankle ROM: Left WFL's Ankle Muscle Strength: Left WFL's - Right Ankle ROM Right DF with Knee extension: 6 Right Plantarflexion: 29 Right Eversion: 20 Right Inversion: 28 Right Ankle/Foot ROM Limitations: Soft Tissue Tightness, Pain - Right Ankle Strength Right Dorsiflexion: 3+ Fair+ Right Plantarflexion: 4- Good- Right Eversion: 3+ Fair+ Right Inversion: 3+ Fair+ Palpation Palpation Findings: Tenderness Comments:: tenderness to palpation R medial heel Sensation - Sensation Right Upper Extremity: Intact/Normal Left Upper Extremity: Intact/Normal Right Lower Extremity: Intact/Normal Left Lower Extremity: Intact/Normal Balance - Sitting Balance Static Sitting Balance: Normal Dynamic Sitting Balance: Normal - Standing Balance Static Standing Balance: Good Dynamic Standing Balance: Fair - Comments Balance Assessment Comments: Tinetti test: which is consistent with moderate risk of falls. (pt states that he has always been clumsy and falls pretty much every day. States his mother said he had polio as a child.) - Treatment Modality: Ultrasound Parameters/Method Applied: 1.5w/cm2 Treatment Area: R plantar surface heel Patient Position: Supine Comments: sup with RLE elevated Interventions - Exercise/Activities/Manual Therapy Exercises/Activities: pt performed standing heel cord stretches, Received passive heel cord stretching, resisted DF/PF Manual Therapy: NA HOME EXERCISE PROGRAM: pt still has written HEP from one time visit. Reinforced importance of atleast performing stretches and ice. - Charges Timed Code Treatment Minutes: 49 Total Treatment Time: 52 Procedures billed for this date of service:: eval med, ultrasound EVALUATION COMPLEXITY LEVEL EVALUATION COMPLEXITY LEVEL: HISTORY: Medium (HTN, OA, CA, pacemaker, pain), EXAM OF BODY SYSTEMS: Medium (pain, ROM, strength, balance, gait), CLINICAL PRESENTATION: Medium, CLINICAL DECISION MAKING: Medium Assessment Assessment: pt presents with pain in R foot which is limiting gait ability as well as pt ability to stand for any length of time. pt also presents with decreased balance due to alterered gait pattern. Patient Education: Home Exercise Program, Education of Plan of Care Rehab Potential: Good Short Term Goals Goal #1: pt independent with initial HEP Goal to be met by: 03/03/18 Goal #2: Improve R ankle ROM WFL with decreased pain Goal to be met by: 03/03/18 Goal #3: pt with improved RLE strength 4 to 4+/5 Goal to be met by: 03/03/18 Goal #4: Improve dyn stand balance as noted by tinetti Goal to be met by: 03/03/18 Senior Care Goals Goal #1: pt rate pain <4/10 with activity Goal to be met by: 03/17/18 Goal #2: pt report increased ability to perform daily activities with less pain Goal to be met by: 03/17/18 Goal #3: Improved dyn stand balance as noted by tinetti score of 23/28 Goal to be met by: 03/17/18 Goal #4: . Plan - Treatment to be Provided Procedures: Therapeutic Exercises, Gait Training, Manual Therapy, Massage, Patient Education Modalities: Ultrasound/Phonophoresis, Class IV Laser, Cryotherapy - Treatment Plan Frequency: 2-3x a week Duration: 4 weeks Dates of Plasma Table Operator Goals: 03/17/18 Expiration date of current Insurance Approval:: n/a - Treatment Code (1) Muscle tightness Code(s): M62.89 - OTHER SPECIFIED DISORDERS OF MUSCLE (2) Plantar fasciitis Code(s): M72.2 - PLANTAR FASCIAL FIBROMATOSIS (3) Right foot pain Code(s): M79.671 - PAIN IN RIGHT FOOT
--- NOTE | 2018-02-19 09:13 | RS.OPPTDN ---
Subjective Date of Note: 02/19/18 Visit #: 2 Number of visits approved by Insurance: NA Date of Evaluation: 02/17/18 Payer Source: MEDICARE Treatment Diagnosis: R plantar fasciatis Current Subjective/complaints:: Patient reports he is working on stretching as instructed. States he continues to walk with a cane, but feels he is able to put more weight on the right foot. *Precautions: PACEMAKER Pain Assessment - Pain Description Pain Location: right heel and plantar surface Current Pain Intensity: mod - Treatment Modality: Ultrasound Parameters/Method Applied: [id number] at 1.5w/cm2 to the right heel and along the plantar surface. Patient Position: Supine - Heat/Cryotherapy Treatment: Hot Pack ([id number] to the right foot platar surface prior to US and EX. Patient in supine. ), Cryotherapy (Ended with 5mins ice massage to the right foot plantar surface. ) Interventions - Exercise/Activities/Manual Therapy Exercises/Activities: pt performed standing heel cord stretches, Received passive heel cord stretching, resisted DF/PF. Instructed in self stretching with band or belt, and standing heel cord stretch at wall. Total minutes of Exercise: [id number] Manual Therapy: NA HOME EXERCISE PROGRAM: pt still has written HEP from one time visit. Self stretching of heel cords and plantar fascia. Ice several times per day. - Charges Timed Code Treatment Minutes: 35mins Total Treatment Time: 50mins Procedures billed for this date of service:: HP, US, EX Assessment: Patient attentive to instruction and appears motivated to work on HEP. Patient Education: Education of diagnosis, Body/Joint mechanics, Home Exercise Program, Activity Modification Comments: Patient education on mechanics and dx. Patient demonstrates compliance with HEP?: Yes Short Term Goals Goal #1: pt independent with initial HEP Goal to be met by: 03/03/18 Progress towards Goal:: Progressing Goal #2: Improve R ankle ROM WFL with decreased pain Goal to be met by: 03/03/18 Goal #3: pt with improved RLE strength 4 to 4+/5 Goal to be met by: 03/03/18 Goal #4: Improve dyn stand balance as noted by mary alice Goal to be met by: 03/03/18 Half-Way Goals Goal #1: pt rate pain <4/10 with activity Goal to be met by: 03/17/18 Goal #2: pt report increased ability to perform daily activities with less pain Goal to be met by: 03/17/18 Goal #3: Improved dyn stand balance as noted by tinetti score of Goal to be met by: 03/17/18 Goal #4: . Plan Dates of Route Contractor Goals: 03/17/18 Expiration date of current Insurance Approval:: 03/17/18 PLAN: Continue modalities, manual therapy, exercise to reduce pain and increase functional ambulation.
--- NOTE | 2018-02-21 11:27 | RS.OPPTDN ---
Subjective Date of Note: 02/21/18 Visit #: 3 Number of visits approved by Insurance: NA Date of Evaluation: 02/17/18 Payer Source: MEDICARE Treatment Diagnosis: R plantar fasciatis Current Subjective/complaints:: Patient report his right foot/heel pain has improved and he is walking a little better. Patient states he continues to need his cane. *Precautions: PACEMAKER Pain Assessment - Pain Description Pain Location: right heel and plantar surface Pain Description: Aching Current Pain Intensity: mod - Treatment Modality: Ultrasound Parameters/Method Applied: [id number] at 1.5w/cm2 to the right foot plantar surface prior to MT. Patient Position: Supine - Heat/Cryotherapy Treatment: Hot Pack ([id number] to the right foot plantar surface prior to US. patient in supine. ), Cryotherapy (Ended treatment session with 5mins ice massage to the right foot plantar surface. ) Interventions - Exercise/Activities/Manual Therapy Exercises/Activities: NA Manual Therapy: [id number] Passive stretching of the right foot plantar surface and heelcords. Deep tissue and myofasical release to the plantar fascia. Total minutes of Manual Therapy: 15mins HOME EXERCISE PROGRAM: pt still has written HEP from one time visit. Self stretching of heel cords and plantar fascia. Ice several times per day. - Charges Timed Code Treatment Minutes: 30mins Total Treatment Time: 45mins Procedures billed for this date of service:: HP, US, MT Assessment: Patient reporting good response to treatment with reports of decrease pain and improved gait. Patient Education: Home Exercise Program Patient demonstrates compliance with HEP?: Yes Short Term Goals Goal #1: pt independent with initial HEP Goal to be met by: 03/03/18 Progress towards Goal:: Progressing Goal #2: Improve R ankle ROM WFL with decreased pain Goal to be met by: 03/03/18 Progress towards Goal:: Progressing Goal #3: pt with improved RLE strength 4 to 4+/5 Goal to be met by: 03/03/18 Goal #4: Improve dyn stand balance as noted by mary alice Goal to be met by: 03/03/18 Prison Goals Goal #1: pt rate pain <4/10 with activity Goal to be met by: 03/17/18 Progress towards goal: Progressing Goal #2: pt report increased ability to perform daily activities with less pain Goal to be met by: 03/17/18 Goal #3: Improved dyn stand balance as noted by tinetti score of Goal to be met by: 03/17/18 Goal #4: . Plan Dates of Cake Mixer Goals: 03/17/18 Expiration date of current Insurance Approval:: 03/17/18 PLAN: Continue modalities, manual therapy, and exercise to reduce pain and increase functional ambulation.
--- NOTE | 2018-02-24 11:12 | RS.OPPTDN ---
Subjective Date of Note: 02/24/18 Visit #: 4 Number of visits approved by Insurance: NA Date of Evaluation: 02/17/18 Payer Source: MEDICARE Treatment Diagnosis: R plantar fasciatis Current Subjective/complaints:: Patient reports continued improvement in right heel/foot pain. States he continues to use cane when out of his home. *Precautions: PACEMAKER Pain Assessment - Pain Description Pain Location: right heel, plantar surface Current Pain Intensity: mild - Treatment Modality: Ultrasound Parameters/Method Applied: [id number] at 1.5w/cm2 to the right heel and along plantar surface prior to MT. Patient Position: Supine - Heat/Cryotherapy Treatment: Hot Pack ([id number] to the right heel and plantar surface of the foot. Patient in supine. ), Cryotherapy (Ended with 5mins ice massage to right foot plantar surface. ) Interventions - Exercise/Activities/Manual Therapy Exercises/Activities: Discussed self stretching in sitting and standing. Manual Therapy: [id number] Passive stretching of the right foot plantar surface and heelcords. Deep tissue and myofasical release to the plantar fascia. Passive stretch of the great toe flexor. Total minutes of Manual Therapy: 18mins HOME EXERCISE PROGRAM: pt still has written HEP from one time visit. Self stretching of heel cords and plantar fascia. Ice several times per day. - Charges Timed Code Treatment Minutes: 33mins Total Treatment Time: 48mins Procedures billed for this date of service:: HP, US, MT Assessment: Patient walking better and going without cane at home. Patient Education: Home Exercise Program Patient demonstrates compliance with HEP?: Yes Short Term Goals Goal #1: pt independent with initial HEP Goal to be met by: 03/03/18 Progress towards Goal:: Progressing Goal #2: Improve R ankle ROM WFL with decreased pain Goal to be met by: 03/03/18 Progress towards Goal:: Progressing Goal #3: pt with improved RLE strength 4 to 4+/5 Goal to be met by: 03/03/18 Goal #4: Improve dyn stand balance as noted by mary alice Goal to be met by: 03/03/18 Director Of Research And Development Goals Goal #1: pt rate pain <4/10 with activity Goal to be met by: 03/17/18 Progress towards goal: Partially Met Goal #2: pt report increased ability to perform daily activities with less pain Goal to be met by: 03/17/18 Goal #3: Improved dyn stand balance as noted by tinetti score of Goal to be met by: 03/17/18 Goal #4: . Plan Dates of Director Of Research And Development Goals: 03/17/18 Expiration date of current Insurance Approval:: 03/17/18 PLAN: Continue modalities and progress exercise to redcue pain and increase functional ambulation.
--- NOTE | 2018-02-26 11:21 | RS.OPPTDN ---
Subjective Date of Note: 02/26/18 Visit #: 5 Number of visits approved by Insurance: NA Date of Evaluation: 02/17/18 Payer Source: MEDICARE Treatment Diagnosis: R plantar fasciatis Current Subjective/complaints:: Patient reports the ultrasound sems to really help relieve the pain.He is doing the exercises /stretches at home. *Precautions: PACEMAKER Pain Assessment - Pain Description Pain Location: R heel/plantar surface - Treatment Modality: Ultrasound Parameters/Method Applied: 10 mins. continuous mode @ 1.5 w/cm2 to R plantar surface Patient Position: Supine - Heat/Cryotherapy Treatment: Hot Pack (20 mins. prior to US ) Interventions - Exercise/Activities/Manual Therapy Exercises/Activities: Reviewed the stretches and use of ice bottle to the plantar surface at home. Total minutes of Exercise: 0 Manual Therapy: Passive stretching of the right foot plantar surface and heelcords. Deep tissue and myofasical release to the plantar fascia. Total minutes of Manual Therapy: 20 HOME EXERCISE PROGRAM: pt still has written HEP from one time visit. Self stretching of heel cords and plantar fascia. Ice several times per day. - Charges Timed Code Treatment Minutes: 30 Total Treatment Time: 50 Procedures billed for this date of service:: hp,US,manual therapy Assessment: Patient has mild tenderness with moderate pressure to the anterior aspect of the heel ,along with the mid-arch area.He tolerates the stretches well ,no pain at rest in the arch.He also enters clinic today with new running shoes ,to assist with reducng foot pain.He is motivated to improve and attentive to the recommendations of the therapy staff. Patient Education: Education of diagnosis, Body/Joint mechanics, Home Exercise Program, Home Safety, Activity Modification, Education of Plan of Care Patient demonstrates compliance with HEP?: Yes Short Term Goals Goal #1: pt independent with initial HEP Goal to be met by: 03/03/18 Progress towards Goal:: Progressing Goal #2: Improve R ankle ROM WFL with decreased pain Goal to be met by: 03/03/18 Progress towards Goal:: Progressing Goal #3: pt with improved RLE strength 4 to 4+/5 Goal to be met by: 03/03/18 Goal #4: Improve dyn stand balance as noted by mary alice Goal to be met by: 03/03/18 Library Page Goals Goal #1: pt rate pain <4/10 with activity Goal to be met by: 03/17/18 Progress towards goal: Partially Met (pain intensity varies ,dependent upon how long he is on his feet) Goal #2: pt report increased ability to perform daily activities with less pain Goal to be met by: 03/17/18 Progress towards goal: Progressing Goal #3: Improved dyn stand balance as noted by tinetti score of 23/28 Goal to be met by: 03/17/18 Goal #4: . Plan Dates of Fdc Goals: 03/17/18 Expiration date of current Insurance Approval:: NA PLAN: Cont. skilled PT to reduce /eliminate R foot pain.
--- NOTE | 2018-02-28 10:45 | RS.OPPTDN ---
Subjective Date of Note: 02/28/18 Visit #: 6 Number of visits approved by Insurance: NA Date of Evaluation: 02/17/18 Payer Source: MEDICARE Treatment Diagnosis: R plantar fasciatis Current Subjective/complaints:: Patient reports continued improvement in right foot pain. States he has some increased soreness today as he did more standing yesterday. Reports a flair-up of right hip and S-I region pain. States physician has told him this is due to change in gait and walking with cane. *Precautions: PACEMAKER Pain Assessment - Pain Description Pain Location: Right heel and plantar surface, left hip Current Pain Intensity: mild - Treatment Modality: Ultrasound Parameters/Method Applied: [id number] at 1.5w/cm2 to the right foot plantar surface prior to MT. Patient Position: Supine - Heat/Cryotherapy Treatment: Hot Pack ([id number] to the right foot prior to US and MT. Patient in supine. ), Cryotherapy (x5mins ice massage to the right foot plantar surface to end session. Patient supine. ) Interventions - Exercise/Activities/Manual Therapy Exercises/Activities: Reviewed standing gastroc and soleus stretching. Assisted with piriformis stretch to left hip. Began green theraband for resistive right ankle df. Assisted hamstring and heelcord stretching on right. Total minutes of Exercise: 12mins Manual Therapy: Passive stretching of the right foot plantar surface and heelcords. Deep tissue and myofasical release to the plantar fascia. Total minutes of Manual Therapy: [id number] HOME EXERCISE PROGRAM: pt still has written HEP from one time visit. Self stretching of heel cords and plantar fascia. Ice several times per day. - Charges Timed Code Treatment Minutes: 44mins Total Treatment Time: 59mins Procedures billed for this date of service:: HP, US, MT, EX Assessment: Patient responding well to treatment with reports of pain reduction and improved gait. He continues to wear new supportive athletic shoes. Patient motivated to progress exercise. Patient Education: Body/Joint mechanics, Home Exercise Program, Home Safety, Activity Modification Comments: Reviewed joint mechanics and home management techniques. Patient demonstrates compliance with HEP?: Yes Short Term Goals Goal #1: pt independent with initial HEP Goal to be met by: 03/03/18 Progress towards Goal:: Progressing Goal #2: Improve R ankle ROM WFL with decreased pain Goal to be met by: 03/03/18 Progress towards Goal:: Progressing Goal #3: pt with improved RLE strength 4 to 4+/5 Goal to be met by: 03/03/18 Progress towards Goal:: Progressing Goal #4: Improve dyn stand balance as noted by tinetti Goal to be met by: 03/03/18 Shelter Goals Goal #1: pt rate pain <4/10 with activity Goal to be met by: 03/17/18 Progress towards goal: Partially Met (pain intensity varies ,dependent upon how long he is on his feet) Goal #2: pt report increased ability to perform daily activities with less pain Goal to be met by: 03/17/18 Progress towards goal: Progressing Goal #3: Improved dyn stand balance as noted by tinetti score of Goal to be met by: 03/17/18 Goal #4: . Plan Dates of Steno Pool Supervisor Goals: 03/17/18 Expiration date of current Insurance Approval:: 03/17/18 PLAN: Continue modalities, manual therapy, and exercise to reduce pain and increase patients balance and functional activity level.
--- NOTE | 2018-03-03 09:22 | RS.OPPTDN ---
Subjective Date of Note: 03/03/18 Visit #: 7 Number of visits approved by Insurance: n/a Date of Evaluation: 02/17/18 Payer Source: MEDICARE Treatment Diagnosis: R plantar fasciatis Current Subjective/complaints:: pt reports that his foot has improved since beginning PT. pt amb without cane this date. States his back has been giving him problems, however is going to have injections tomorrow. *Precautions: PACEMAKER Pain Assessment - Pain Description Pain Location: R heel plantar surface. Pain Description: Burning Current Pain Intensity: 1-2 - Treatment Modality: Ultrasound Parameters/Method Applied: 1.5w/cm2 x 9 mins to plantar surface of R foot concentrating on R lat heel, prior to ex. Patient Position: Supine - Heat/Cryotherapy Treatment: Hot Pack (x 15 mins prior to ultrasound and ex.), Cryotherapy (ice massage x 5 mins after treatment) Interventions - Exercise/Activities/Manual Therapy Exercises/Activities: pt received heel cord stretching RLE. pt also performed 2 sets of 10 reps of DF, PF, inversion, eversion with green band. Reviewed HEP with patient. Manual Therapy: pt received myofascial release to plantar surface of foot with deep tissue massage and stretching HOME EXERCISE PROGRAM: pt still has written HEP from one time visit. Self stretching of heel cords and plantar fascia. Ice several times per day. - Charges Timed Code Treatment Minutes: 46 Total Treatment Time: 61 Procedures billed for this date of service:: HP, US, Ex Assessment: pt progressing with decreased pain R foot as well as decreased antalgic gait pattern. pt has progressed to amb without cane. pt also improved with decreased tightness in R heel cord. Patient Education: Home Exercise Program, Education of Plan of Care Patient demonstrates compliance with HEP?: Yes Short Term Goals Goal #1: pt independent with initial HEP Goal to be met by: 03/03/18 Progress towards Goal:: Met Goal #2: Improve R ankle ROM WFL with decreased pain Goal to be met by: 03/03/18 Progress towards Goal:: Progressing Goal #3: pt with improved RLE strength 4 to 4+/5 Goal to be met by: 03/03/18 Progress towards Goal:: Progressing Goal #4: Improve dyn stand balance as noted by mary alice Goal to be met by: 03/03/18 Progress towards Goal:: Progressing Comments:: will recheck tinetti on next visit. Correction Goals Goal #1: pt rate pain <4/10 with activity Goal to be met by: 03/17/18 Progress towards goal: Partially Met (pain intensity varies ,dependent upon how long he is on his feet) Goal #2: pt report increased ability to perform daily activities with less pain Goal to be met by: 03/17/18 Progress towards goal: Progressing Goal #3: Improved dyn stand balance as noted by tinetti score of 23/28 Goal to be met by: 03/17/18 Progress towards goal: Progressing Goal #4: . Plan Dates of Correction Goals: 03/17/18 Expiration date of current Insurance Approval:: n/a PLAN: continue to progress with ex, manual therapy and modalities to decrease pain and improve mobility.
--- NOTE | 2018-03-05 10:40 | RS.OPPTDN ---
Subjective Date of Note: 03/05/18 Visit #: 8 Number of visits approved by Insurance: NA Date of Evaluation: 02/17/18 Payer Source: MEDICARE Treatment Diagnosis: R plantar fasciatis Current Subjective/complaints:: Patient reports an increase in right foot pain due to standing for services yesterday. States overall he has made good improvement and has discontinued use of cane. *Precautions: PACEMAKER Pain Assessment - Pain Description Pain Location: Right heel, plantar surface Pain Description: Tightness, Aching Current Pain Intensity: mild - Treatment Modality: Ultrasound Parameters/Method Applied: [id number] @ 1.5w/cm2 to the right foot plantar surface prior to MT. Patient Position: Supine - Heat/Cryotherapy Treatment: Hot Pack ([id number] to the right foot plantar surface prior to US. Patient in supine. ), Cryotherapy (Ended with 5mins ice massage to the right heel and along plantar fasica. Patient in supine. ) Interventions - Exercise/Activities/Manual Therapy Exercises/Activities: Increased to blue theraband for resisted right ankle df, 3s/10reps. Reviewed HEP and home care. Total minutes of Exercise: 4mins Manual Therapy: pt received myofascial release to plantar surface of foot with deep tissue massage and stretching Total minutes of Manual Therapy: 20mins HOME EXERCISE PROGRAM: pt still has written HEP from one time visit. Self stretching of heel cords and plantar fascia. Ice several times per day. - Charges Timed Code Treatment Minutes: 39mins Total Treatment Time: 54mins Procedures billed for this date of service:: HP, US, MT2 Assessment: Patient progressing with functional activity level and has been able to discontinue use of cane. Patient Education: Home Exercise Program, Activity Modification Patient demonstrates compliance with HEP?: Yes Short Term Goals Goal #1: pt independent with initial HEP Goal to be met by: 03/03/18 Progress towards Goal:: Met Goal #2: Improve R ankle ROM WFL with decreased pain Goal to be met by: 03/03/18 Progress towards Goal:: Progressing Goal #3: pt with improved RLE strength 4 to 4+/5 Goal to be met by: 03/03/18 Progress towards Goal:: Progressing Goal #4: Improve dyn stand balance as noted by mary alice Goal to be met by: 03/03/18 Progress towards Goal:: Progressing [facility] Goals Goal #1: pt rate pain <4/10 with activity Goal to be met by: 03/17/18 Progress towards goal: Partially Met (pain intensity varies ,dependent upon how long he is on his feet) Goal #2: pt report increased ability to perform daily activities with less pain Goal to be met by: 03/17/18 Progress towards goal: Met Goal #3: Improved dyn stand balance as noted by tinetti score of 23/28 Goal to be met by: 03/17/18 Progress towards goal: Progressing Goal #4: . Plan Dates of Chcf Goals: 03/17/18 Expiration date of current Insurance Approval:: 03/17/18 PLAN: Continue modalities, MT, and progressive EX to reduce pain and increase patients functional activity level.
--- NOTE | 2018-03-07 11:55 | RS.OPPTDN ---
Subjective Date of Note: 03/07/18 Visit #: 9 Number of visits approved by Insurance: NA Date of Evaluation: 02/17/18 Payer Source: MEDICARE Treatment Diagnosis: R plantar fasciatis Current Subjective/complaints:: Patient reports improvement in right foot pain today. States he has not been on his feet as much and is working on HEP. *Precautions: PACEMAKER Pain Assessment - Pain Description Pain Location: right heel and plantar surface Pain Description: Tightness Pain Description: soreness Current Pain Intensity: mild - Treatment Modality: Ultrasound Parameters/Method Applied: [id number] at 1.5w/cm2 to the right heel and along the plantar surface prior to MT. Patient Position: Supine - Heat/Cryotherapy Treatment: Hot Pack ([id number] to the right foot prior to US and MT. Patient in supine. ) Interventions - Exercise/Activities/Manual Therapy Exercises/Activities: Blue theraband for resisted right ankle df, 4s/10reps. Discussion of HEP. Total minutes of Exercise: 5mins Manual Therapy: pt received myofascial release to plantar surface of foot with deep tissue massage and stretching. Assisted stretching of hamstrings, gastroc, soleus, and plantar fascia. Total minutes of Manual Therapy: 24mins HOME EXERCISE PROGRAM: pt still has written HEP from one time visit. Self stretching of heel cords and plantar fascia. Ice several times per day. - Objective Findings Observations,measurements,etc.: Reduction in gait deviation and increase in hamstring and heel cord length. - Charges Timed Code Treatment Minutes: 39mins Total Treatment Time: 54mins Procedures billed for this date of service:: HP, US, MT2 Assessment: Patient demos improvement in flexibility and ambulation, and reports improvement in functional activity level. Patient Education: Home Exercise Program, Activity Modification Patient demonstrates compliance with HEP?: Yes Short Term Goals Goal #1: pt independent with initial HEP Goal to be met by: 03/03/18 Progress towards Goal:: Met Goal #2: Improve R ankle ROM WFL with decreased pain Goal to be met by: 03/03/18 Progress towards Goal:: Progressing Goal #3: pt with improved RLE strength 4 to 4+/5 Goal to be met by: 03/03/18 Progress towards Goal:: Progressing Goal #4: Improve dyn stand balance as noted by mary alice Goal to be met by: 03/03/18 Progress towards Goal:: Progressing Long-Term Goals Goal #1: pt rate pain <4/10 with activity Goal to be met by: 03/17/18 Progress towards goal: Partially Met (pain intensity varies ,dependent upon how long he is on his feet) Goal #2: pt report increased ability to perform daily activities with less pain Goal to be met by: 03/17/18 Progress towards goal: Met Goal #3: Improved dyn stand balance as noted by tinetti score of 23/28 Goal to be met by: 03/17/18 Progress towards goal: Progressing Goal #4: . Plan Dates of Long-Term Goals: 03/17/18 Expiration date of current Insurance Approval:: 03/17/18 PLAN: Continue modalities and progress exercise to reduce pain and increase functional mobility and activity level.
--- NOTE | 2018-03-12 14:02 | RS.OPPTDN ---
Subjective Date of Note: 03/12/18 Visit #: 10 Number of visits approved by Insurance: NA Date of Evaluation: 02/17/18 Payer Source: MEDICARE Treatment Diagnosis: R plantar fasciatis Current Subjective/complaints:: Patient reports he has no balance problems. States right foot pain continues to improve. States right heel pain continues to reduce his WB with walking and he has mild gait deviation. States he is working on HEP and feels another week of treatment should improve his ability to WB on right foot and improve his walking. *Precautions: PACEMAKER Pain Assessment - Pain Description Pain Location: right heel, plantar fascia Pain Description: Tightness, Dull, Aching Current Pain Intensity: 2/10 - Treatment Modality: Ultrasound Parameters/Method Applied: [id number] at 1.5w/cm2 to the right foot plantar surface. Patient Position: Supine - Heat/Cryotherapy Treatment: Hot Pack ([id number] to the right heel and plantar surface prior to US and MT. Patient supine. ) Interventions - Exercise/Activities/Manual Therapy Exercises/Activities: Blue theraband for resisted right ankle df, 4s/10reps. Blue theraband for ankle inversion and eversion, 3s/10reps each. Isometrics for inversion, eversion, and df. Total minutes of Exercise: 8mins Manual Therapy: pt received myofascial release to plantar surface of foot with deep tissue massage and stretching. Assisted stretching of hamstrings, gastroc, soleus, and plantar fascia. Total minutes of Manual Therapy: 20mins HOME EXERCISE PROGRAM: pt still has written HEP from one time visit. Self stretching of heel cords and plantar fascia. Ice several times per day. - Objective Findings Observations,measurements,etc.: Patient increased LE Functional scale score to 45/80 or 44% (24/80 or 70%) - Charges Timed Code Treatment Minutes: 38mins Total Treatment Time: 56mins Procedures billed for this date of service:: HP, US, MT, EX Assessment: Patient progressing well with ROM, strength, reduction of pain, and improvement of gait and functional activity level. Patient Education: Education of diagnosis, Home Exercise Program Patient demonstrates compliance with HEP?: Yes Short Term Goals Goal #1: pt independent with initial HEP Goal to be met by: 03/03/18 Progress towards Goal:: Met Goal #2: Improve R ankle ROM WFL with decreased pain Goal to be met by: 03/03/18 Progress towards Goal:: Met Goal #3: pt with improved RLE strength 4 to 4+/5 Goal to be met by: 03/03/18 Progress towards Goal:: Partially Met (R LE 4/5 MMT) Goal #4: Improve dyn stand balance as noted by tinetti Goal to be met by: 03/03/18 Progress towards Goal:: Progressing Pocket Assembler Goals Goal #1: pt rate pain <4/10 with activity Goal to be met by: 03/17/18 Progress towards goal: Met Goal #2: pt report increased ability to perform daily activities with less pain Goal to be met by: 03/17/18 Progress towards goal: Met Goal #3: Improved dyn stand balance as noted by tinetti score of Goal to be met by: 03/17/18 Progress towards goal: Progressing Comments: No assessed Plan Dates of Fci Goals: 03/17/18 Expiration date of current Insurance Approval:: 03/17/18 PLAN: Continue next week to increase patients functional gait and activity level.
--- NOTE | 2018-03-12 14:14 | RS.PTSUM ---
Progress Note/Summary Date of Note: 03/12/18 Date of Evaluation: 02/17/18 Number of Visits: 10 Number of visits approved by Insurance: n/a Reporting Period for this Progress Note: 02/17/18-03/12/18 Current Complaints/Gains: pt reports he is doing much better with walking. pt has minor gait deviations due to R heel pain, but is able to amb without cane. Objective Measurements/Presentation: R ankle ROM WFL's without pain, pain 3/10 or less. RLE 4/5. pt is benefitting from skilled manual therapy/massage to decrease plantar fascia pain and tightness. LE functional scale improved from 70% to 44% G Codes: n/a Source of G Code Score: n/a - Short Term Goals Goal #1: pt independent with initial HEP Goal to be met by: 03/03/18 Progress towards Goal:: Met Goal #2: Improve R ankle ROM WFL with decreased pain Goal to be met by: 03/03/18 Progress towards Goal:: Met Goal to be met by: 03/03/18 Progress towards Goal:: Progressing Goal #4: Improve dyn stand balance as noted by tinetti Goal to be met by: 03/03/18 Progress towards Goal:: Progressing - Alf Goals Goal #1: pt rate pain <4/10 with activity Goal to be met by: 03/17/18 Progress towards goal: Met Goal #2: pt report increased ability to perform daily activities with less pain Goal to be met by: 03/17/18 Progress towards goal: Met Goal #3: Improved dyn stand balance as noted by tinetti score of Goal to be met by: 03/17/18 Progress towards goal: Progressing Goal #4: . - Assessment Assessment of Improvement/Progress: pt has met STG 1, 2, and LTG 1, 2. pt is progressing toward remaining goals. pt continues with decreased strength, balance. Feel pt would continue to benefit from continued PT next week to reduce pain and improve functional ambulation and activity level. Summary: Patient has made progress towards goals., Patient demonstrates potential to gain increased function with therapy - Plan Plan: Continue Plan of Care Frequency: 2 X week Duration: 1 week Dates of Corporate Development Officer Goals: 03/17/18 Expiration date of current Insurance Approval:: n/a
== END 2018-03-13 23:59 ==
PROVIDERS: ATTEND Orthopaedic Surgery
DX: M72.2 Plantar fascial fibromatosis (principal)

== ENCOUNTER 2018-03-17 08:14 | Outpatient (RCR) ==
--- NOTE | 2018-03-17 15:08 | RS.OPPTDN ---
Subjective Date of Note: 03/17/18 Visit #: 11 Number of visits approved by Insurance: NA Date of Evaluation: 02/17/18 Payer Source: MEDICARE Treatment Diagnosis: R plantar fasciatis Current Subjective/complaints:: Patient states he was unable to attend last session last week due to moving. States he know today was he last scheduled appointment per POC. States he is pleased with his progress and states he is about "85% better". States he will continue HEP. *Precautions: PACEMAKER Pain Assessment - Pain Description Pain Location: right heel and foot pain Other Comments regarding Pain:: Mild soreness with weight-bearing. - Treatment Modality: Ultrasound Parameters/Method Applied: [id number] at 1.5w/cm2 to the right foot plantar surface prior to EX. Patient in supine. - Heat/Cryotherapy Treatment: Hot Pack ([id number] to the right foot prior US and MT. Patient in supine. ) Interventions - Exercise/Activities/Manual Therapy Exercises/Activities: Discussion of HEP. Patient given tennis ball and instruction for rolling on plantar fascia. Total minutes of Exercise: 5mins Manual Therapy: pt received myofascial release to plantar surface of foot with deep tissue massage and stretching. Assisted stretching of hamstrings, gastroc, soleus, and plantar fascia. Total minutes of Manual Therapy: 24mins HOME EXERCISE PROGRAM: pt still has written HEP from one time visit. Self stretching of heel cords and plantar fascia. Ice several times per day. - Objective Findings Observations,measurements,etc.: Patient demos no gait deviations or LOB. Demos right ankle ROM within limits of the left. Also, 4 to 4+/5 MMT right LE. - Charges Timed Code Treatment Minutes: 39mins Total Treatment Time: 54mins Procedures billed for this date of service:: HP, US, MT2 Assessment: Patient has progressed well. He has met all 7 treatment goals, has discontinued use of cane, and will continue HEP. Patient Education: Home Exercise Program Comments: Finalized all HEP and hame care. Patient demonstrates compliance with HEP?: Yes Short Term Goals Goal #1: pt independent with initial HEP Goal to be met by: 03/03/18 Progress towards Goal:: Met Goal #2: Improve R ankle ROM WFL with decreased pain Goal to be met by: 03/03/18 Progress towards Goal:: Met Goal #3: pt with improved RLE strength 4 to 4+/5 Goal to be met by: 03/03/18 Progress towards Goal:: Met Goal #4: Improve dyn stand balance as noted by tinetti Goal to be met by: 03/03/18 Progress towards Goal:: Met Fdc Goals Goal #1: pt rate pain <4/10 with activity Goal to be met by: 03/17/18 Progress towards goal: Met Goal #2: pt report increased ability to perform daily activities with less pain Goal to be met by: 03/17/18 Progress towards goal: Met Goal #3: Improved dyn stand balance as noted by tinetti score of Goal to be met by: 03/17/18 Progress towards goal: Met Comments: No balance, gait deviations Goal #4: . Plan Dates of Insurance Claims Representative Goals: 03/17/18 Expiration date of current Insurance Approval:: 03/17/18 PLAN: Discharge with HEP.
--- NOTE | 2018-03-20 11:01 | RS.OPPTDC ---
Date of Discharge: 03/17/18 Date of Evaluation: 02/17/18 Number of Visits: 11 Treatment Diagnosis: R plantar fasciatis Current Level of Function: pt demonstrates good gait pattern with no LOB, no deviations. pt is no longer using cane. pt is independent with HEP. R ankle WFL' s. MMT 4 to 4+/5 RLE, R ankle 4+/5. Pain only 1/10 which pt describes as soreness. pt has met all goals. Current Complaints/Gains: pt states he is "85% better". Reports performing most ADL's. Was able to help with moving which is why he missed a previous appt. States he will continue with HEP as instructed. Functional Outcome Measure Other: LE functional scale 44% - G Codes & Severity Modifier G Codes & Modifier: n/a Source of G Code score: n/a Observation - Observation Posture: Forward Head, Rounded Shoulders Gait - Gait Pattern General Gait Pattern Observation: No Deviations/Normal Interventions - Exercise/Activities/Manual Therapy Exercises/Activities: n/a Manual Therapy: n/a HOME EXERCISE PROGRAM: pt still has written HEP from one time visit. Self stretching of heel cords and plantar fascia. Ice several times per day. - Charges Timed Code Treatment Minutes: n/a Total Treatment Time: n/a Procedures billed for this date of service:: n/a Assessment Assessment: pt has met all goals. Patient Education: Home Exercise Program, Education of Plan of Care Rehab Potential: Good Short Term Goals Goal #1: pt independent with initial HEP Goal to be met by: 03/03/18 Progress towards Goal:: Met Goal #2: Improve R ankle ROM WFL with decreased pain Goal to be met by: 03/03/18 Progress towards Goal:: Met Goal #3: pt with improved RLE strength 4 to 4+/5 Goal to be met by: 03/03/18 Progress towards Goal:: Met Goal #4: Improve dyn stand balance as noted by mary alice Goal to be met by: 03/03/18 Progress towards Goal:: Met Drupal Programmer Goals Goal #1: pt rate pain <4/10 with activity Goal to be met by: 03/17/18 Progress towards goal: Met Goal #2: pt report increased ability to perform daily activities with less pain Goal to be met by: 03/17/18 Progress towards goal: Met Goal #3: Improved dyn stand balance as noted by tinetti score of Goal to be met by: 03/17/18 Progress towards goal: Met Goal #4: . Plan Reason for Discharge:: All Goals Met
== END 2018-04-10 23:59 ==
PROVIDERS: ATTEND Orthopaedic Surgery
DX: M72.2 Plantar fascial fibromatosis (principal)

== ENCOUNTER 2018-10-02 08:29 | Emergency (ER) | payer OTHER ==
[2018-10-02 08:33] VITALS: BP 122/76; TEMP 97.8; BMI 39.1
--- NOTE | 2018-10-02 08:46 | ED.PDOC ---
General ED Provider: Dr. SHANDA GORDILLO Chief Complaint: Abdominal Pain Stated Complaint: Epigastric pain; worse after eating. Started a couple of days ago; has had occasionally in past but not as intense. Eating makes worse; movements also bother him. Laying down - sleeping makes worse. Had chills last night - otherwise no fever or soaking sweats. Time Seen by Physician: 08:44 Mode of Arrival: Walk-In Information Source: Patient Primary Care Provider: ABHISHEK GIBSON Referred to ED by: PCP (Saw Dr. Gibson; told to come to ER for Ultrasound GB) Nursing and Triage Documentation Reviewed and Agree: Yes Does patient meet sepsis criteria?: No System Inflammatory Response Syndrome: Not Applicable Sepsis Protocol: For patient's 13 years and over: Temp is 96.8 and below OR 101 and greater Pulse >90 BPM Resp >20/minute Acutely Altered Mental Status Are patient's symptoms suggestive of a new infection, such as: -Pneumonia -Skin, Soft Tissue -Endocarditis -UTI -Bone, Joint Infection -Implantable Device -Acute Abdominal Infection -Wound Infection -Meningitis -Blood Stream Catheter Infection -Unknown Review of Systems - Review Of Systems Constitutional: Reports: Malaise Respiratory: Reports: No symptoms Cardiac: Reports: No symptoms GI: Reports: Other (Epigastric pain) : Reports: No symptoms Neurological: Reports: No symptoms All Other Systems: Reviewed and Negative Past Medical History - Past Medical History Previously Healthy: Yes Endocrine: Reports: Hypothyroid, Hyperthyroid Cardiovascular: Reports: CAD, CO, CHF Respiratory: Reports: None Hematological: Reports: None Gastrointestinal: Reports: None Genitourinary: Reports: Kidney stones Neuro/Psych: Reports: None Musculoskeletal: Reports: None Cancer: Reports: Unknown (thyroid ) - Surgical History General Surgical History: Reports: None, CABG (2011), Pacemaker, Other ( Thyroid surgery ) - Family History Family History: Reports: None - Social History Smoking Status: Former smoker Hx Substance Use: No Alcohol Screening: None Physical Exam - Physical Exam Appearance: Well-appearing Ill-appearing: None Pain Distress: Mild Eyes: DOROTHEA, EOMI Neck: Supple Respiratory: Airway patent, Breath sounds clear, Breath sounds equal Cardiovascular: RRR, Pulses normal GI/: Soft, Nontender, No masses, Bowel sounds normal, Tender (slightly tender to gentle palpation) Musculoskeletal: Normal strength Skin: Warm, Dry, Normal color Neurological: Sensation intact, Motor intact, Alert, Oriented Psychiatric: Affect appropriate, Mood appropriate Interpretation - Radiology Interpretation Radiology Interpretation By: Radiologist Radiology Results: No acute changes Physician Notification - Case Discussed Physician Notified: Dr Gibson Time of Notification: 10:45 (Add two RX; will see Saturday) Critical Care Note - Critical Care Note Total Time (mins): 20 Course - Course Hematology/Chemistry: 10/02/18 09:00 10/02/18 09:00 Orders, Labs, Meds: Lab Review 10/02/18 10/02/18 09:00 09:00 WBC 8.42 RBC 4.83 Hgb 13.4 L Hct 41.7 L MCV 86.3 MCH 27.7 MCHC 32.1 RDW Coeff of Gonsalo 15.0 H Plt Count 162 Immature Gran % (Auto) 0.8 Neut % (Auto) 77.1 Lymph % (Auto) 12.0 [place] % (Auto) 7.1 Eos % (Auto) 2.6 Baso % (Auto) 0.4 Immature Gran # (Auto) 0.1 Neut # (Auto) 6.5 Lymph # (Auto) 1.0 [place] # (Auto) 0.6 Eos # (Auto) 0.2 Baso # (Auto) 0.0 Sodium 137.4 Potassium 3.73 Chloride 103.3 Carbon Dioxide 28.2 Anion Gap 9.63 BUN 13.5 Creatinine 0.81 Estimated GFR (MDRD) 94.00 BUN/Creatinine Ratio 16.66 Glucose 99.2 Calcium 8.85 Total Bilirubin 1.01 AST 23.6 ALT 19.3 Alkaline Phosphatase 74.4 Troponin I < 0.012 Total Protein 6.91 Albumin 3.95 Globulin 2.96 Albumin/Globulin Ratio 1.33 Lipase 20.7 L Orders Category Date Time Status NPO REMINDER: IMAGING ONCE CARE 10/02/18 09:38 Completed CBC W/ AUTO DIFF Stat LAB 10/02/18 09:00 Completed COMPREHENSIVE METABOLIC PANEL Stat LAB 10/02/18 09:00 Completed LIPASE Stat LAB 10/02/18 09:00 Completed TROPONIN I Stat LAB 10/02/18 09:00 Completed CHEST, 1V AP ONLY Stat RADS 10/02/18 08:50 Completed GALLBLADDER ULTRASOUND [U/S ABDOMEN RT UPPER QUAD] Stat RADS 10/02/18 09:37 Completed Vital Signs: Temp Pulse Resp BP Pulse Ox 08/22/19 08:29 97.8 F 82 20 122/76 94 L Departure - Departure Time of Disposition: 10:56 Disposition: HOME SELF-CARE Discharge Problem: Epigastric abdominal pain Instructions: Epigastric Pain (ED) Condition: Good Pt referred to PMD for follow-up: Yes (Call for appointment) IPMP verified?: No Additional Instructions: Make appointment for saturday with Dr Gibson, let them know the ER doctor talked with him. Take the aditional prescriptions ( Carafate and Librax. He is planning on doing a further gall bladder study probably next week. Prescriptions: Chlordiazepoxide/Clidinium Br [Librax 5/2.5 mg] 1 cap PO ACHS #30 capsule Sucralfate [Carafate] 1 gm PO ACHS #30 tablet Allergies/Adverse Reactions: Allergies meperidine HCl [From Demerol] Adverse Reaction (Verified 10/02/18 08:33) Home Medications: Ambulatory Orders Alprazolam 0.25 mg PO TID PRN 12/02/14 Aspirin [Aspirin EC] 81 mg PO DAILYWM 12/02/14 Escitalopram Oxalate [Lexapro] 20 mg PO DAILY 12/02/14 Metoprolol Tartrate [Lopressor] 50 mg PO DAILY 12/02/14 Nitroglycerin [Nitrostat] 0.4 mg SL DIRECTED PRN 12/02/14 Omeprazole [Prilosec] 20 mg PO QDAC 12/02/14 Valsartan [Diovan] 80 mg PO DAILY 12/02/14 Atorvastatin Calcium [Lipitor] 80 mg PO DAILY 04/07/16 Furosemide [Lasix Tab] 40 mg PO DAILY 04/07/16 [place]-3 Fatty Acids [Fish Oil Concentrate] 1,000 mg PO DAILY 04/07/16 Potassium Chloride 20 meq PO DAILY 04/07/16 Ticagrelor [Brilinta] 90 mg PO DAILY 04/07/16 Chlordiazepoxide/Clidinium Br [Librax 5/2.5 mg] 1 cap PO ACHS #30 capsule Sucralfate [Carafate] 1 gm PO ACHS #30 tablet 10/02/18 Disposition Discussed With: Patient (and spouse)
--- NOTE | 2018-10-02 09:21 | DI ---
EXAM: Frontal chest HISTORY: Epigastric pain FINDINGS: No comparison was available. Heart size appears within normal limits. Sternotomy wires a re noted. Left-sided pacemaker unit is in place. No acute infiltrates are seen. No vascular conges tion. There is no consolidation, visible pleural fluid or pneumothorax. Bones reveal no acute fract ure. IMPRESSION: No acute cardiopulmonary process.
--- NOTE | 2018-10-02 10:18 | US ---
EXAM: Ultrasound abdomen limited right upper quadrant HISTORY: Pain, worse after food COMPARISON: None TECHNIQUE: Limited ultrasound abdomen right upper quadrant was performed FINDINGS: Visualized portion pancreas pancreas obscured secondary to bowel gas shadowing. Liver dif fusely increased in echogenicity. Liver normal in size. Main portal vein patent with normal directi on of flow. No shadowing gallstones. Thickening. No pericholecystic fluid. No biliary duct dilati on with common bile duct measuring 0.4 cm. Right kidney measures 11.7 cm in length without hydroneph rosis. IMPRESSION: 1. No cholelithiasis. No gallbladder wall thickening. 2. Hepatic steatosis.
== END 2018-10-02 11:09 | disposition home or self-care (01) ==
LOC: ED 08:29
DX: R10.13 Epigastric pain (principal); I25.810 Atherosclerosis of coronary artery bypass graft(s) without angina pectoris; I25.2 Old myocardial infarction; Z87.442 Personal history of urinary calculi; Z95.0 Presence of cardiac pacemaker; Z79.899 Other long term (current) drug therapy
CPT/HCPCS: 36415; 80053; 83690; 84484; 85025; 99283